=== PATIENT | female | born 1985 | race Two or more races ===

== ENCOUNTER 2024-02-19 11:33 | Emergency (ER) | payer OTHER ==
[~2024-02-19] VITALS: Ht 170.2 cm; Wt 154.6 kg
[2024-02-19] MEDS ORDERED: TIRZ7.5P SQ (11:46)
[2024-02-19] MEDS ORDERED: LEVO150 PO (11:46)
[2024-02-19 12:23] LABS: COVID AG,FIA SOURCE NASAL SWAB
[2024-02-19 12:30] VITALS: BP 122/71; PULSE 70; RESP 18; TEMP 98.6; O2SAT 98
[2024-02-19 12:57] LABS: SARS-COV2 (COVID) ANTIGEN,FIA Negative (Negative)
[2024-02-19 12:58] LABS: INFLUENZA TYPE A NEGATIVE FOR TYPE A (NEGATIVE); INFLUENZA TYPE B NEGATIVE FOR TYPE B (NEGATIVE)
[2024-02-19] MEDS: ACETAMINOPHEN 500 MG TABLET PO ONE (12:59)
[2024-02-19] MEDS: IBUPROFEN 600 MG TABLET PO ONE (13:00)
[2024-02-19] MEDS ORDERED: ACET-3385 PO (13:26)
[2024-02-19] MEDS ORDERED: IBUP-1492 PO (13:26)
== END 2024-02-19 13:37 | disposition home or self-care (01) ==
LOC: EMS 11:33
DX: B34.9 Viral infection, unspecified (principal); E11.9 Type 2 diabetes mellitus without complications; E03.9 Hypothyroidism, unspecified; Z98.890 Other specified postprocedural states; Z88.2 Allergy status to sulfonamides; Z79.85 Long-term (current) use of injectable non-insulin antidiabetic drugs; Z20.822 Contact with and (suspected) exposure to COVID-19
CPT/HCPCS: 87430; 87804; 99283